=== PATIENT | male | born 1980 | race Caucasian/White ===

== ENCOUNTER 2016-10-29 20:15 | Emergency (ER) | payer SELFPAY ==
[~2016-10-29] VITALS: Ht 182.9 cm; Wt 83.5 kg
[2016-10-29 20:20] VITALS: BP 130/77; PULSE 60; RESP 18; TEMP 97.9; O2SAT 98
[2016-10-29] MEDS ORDERED: CEPHALEXIN MONOHYDRATE 500 MG CAP PO ONE (20:45)
[2016-10-29] MEDS ORDERED: SULFAMETHOXAZOLE-TRIMETHOPRIM DS 800-160 MG TAB PO ONE (20:45)
[2016-10-29] MEDS ORDERED: BACT800T5 PO (20:53)
[2016-10-29] MEDS ORDERED: CEPH-460 PO (20:53)
--- NOTE | 2016-10-29 20:53 | PD ---
HPI Chief Complaint: Skin Problem Time Seen by Provider: 20:43 Travel History International Travel<30 days: No Contact w/Intl Traveler<30days: No Traveled to known affect area: No History of Present Illness HPI 36-year-old male here for evaluation of left inguinal pain, swelling, and redness. Patient noticed a small area that was uncomfortable in his left inguinal region. Yesterday there was a palpable lump with overlying erythema. Relative thought that this may be a hernia and attempted to reduce the lump without significant improvement. Today the area of redness and induration has increased. Patient reports that the area is a little uncomfortable. He denies fevers or chills. Pain/discomfort made worse by movement and palpation. He denies nausea or vomiting. Last had a bowel movement earlier today which was normal. He denies having any significant past medical history. No history of diabetes. No IVDU. PFSH Past Medical History Medical History: Denies Significant Hx Diminished Hearing: No Tetanus Vaccination: Unknown Influenza Vaccination: No Past Surgical History Surgical History: No Previous Surgery Social History Alcohol Use: No Tobacco Use: No Substance Use: No Allergies-Medications (Allergen,Severity, Reaction): Coded Allergies: No Known Allergies (Unverified , 10/29/16) Reported Meds & Prescriptions Reported Meds & Active Scripts Active No Active Prescriptions or Reported Medications Review of Systems Except as stated in HPI: all other systems reviewed are Neg Physical Exam Narrative GENERAL: Well-developed, well-nourished, comfortable, no acute distress. SKIN: Left inguinal region with moderate size area of induration with overlying erythema, no red streaks, no fluctuance. This area was evaluated using a bedside linear ultrasound probe which shows diffuse cobblestoning, no drainable fluid collection. This is consistent with cellulitis. The rest of his skin exam is within normal limits, no other signs of cellulitis. HEAD: Atraumatic. Normocephalic. EYES: Pupils equal and round. No scleral icterus. No injection or drainage. ENT: No nasal bleeding or discharge. Mucous membranes pink and moist. NECK: Trachea midline. No JVD. No nuchal rigidity. CARDIOVASCULAR: Regular rate and rhythm. Bilateral femoral pulses are brisk and equal. GASTROINTESTINAL: Abdomen soft, non-tender, nondistended. : Inguinal skin exam as above. The rest of his exam is normal. No scrotal swelling or masses. No scrotal skin color changes. No crepitus. MUSCULOSKELETAL: No obvious deformities. No clubbing. No cyanosis. No edema. NEUROLOGICAL: Awake and alert. No obvious cranial nerve deficits. Motor grossly within normal limits. Normal speech. PSYCHIATRIC: Appropriate mood and affect; insight and judgment normal. Data Data Last Documented VS Vital Signs Date Time Temp Pulse Resp B/P Pulse Ox O2 Delivery O2 Flow Rate FiO2 10/29/16 20:34 66 18 10/29/16 20:20 97.9 130/77 98 MDM Medical Decision Making Medical Screen Exam Complete: Yes Emergency Medical Condition: Yes Differential Diagnosis Cellulitis, abscess, lymphadenopathy, incarcerated hernia unlikely, Layla's gangrene not likely Narrative Course This is a 36-year-old male who presents with warmth, erythema, and indurated area to his left inguinal region. On physical exam this appears to be a cellulitis. This area was evaluated using a bedside linear ultrasound probe in shows cobblestoning which is consistent with cellulitis. There is no drainable fluid collection. There did not appear to be any bowel. Patient overall looks very well. His abdominal exam is benign. The rest of his exam is within normal limits. His vital signs are within normal limits. At this point plan is to start him on oral antibiotics with strict return instructions. Patient and the patient's family verbalized understanding and agreement with plan. Diagnosis Primary Impression: Cellulitis of left groin Referrals: Primary Care Physician 3 days Additional Instructions: Take antibiotics as prescribed. Follow-up with a primary care physician this week. Return to the emergency department for worsening symptoms or any other concerns. Scripts Cephalexin (Keflex)500 Mg The452 Mg PO Q6H 10 Days Ref 0 Prov:Landen Mejia MD 10/29/16 Sulfamethoxazole-Trimethoprim (Bactrim DS)800-160 Mg Tab1 Tab PO BID #20 TAB Ref 0 Prov:Landen Mejia MD 10/29/16 Disposition: 01 DISCHARGE HOME Condition: Stable Landen Mejia MD Oct 29, 2016 20:53
== END 2016-10-29 21:08 | disposition home or self-care (01) ==
LOC: PHED 20:15
DX: L03.314 Cellulitis of groin (principal)
CPT/HCPCS: 99284